=== PATIENT | female | born 1970 | race Asian ===

== ENCOUNTER 2019-05-12 08:47 | Outpatient (CLI) | payer OTHER ==
[2019-05-12 09:13] LABS: PLATELET COUNT 346 K/uL (152-353)
[2019-05-12 09:17] LABS: POTASSIUM 3.7 mmol/L (3.6-5.2)
[2019-05-12 12:45] LABS: PARTIAL THROMBOPLASTIN TIME 26.2 SECONDS (24.5-33.6)
== END 2019-05-12 22:36 | disposition home or self-care (01) ==
LOC: LABW 08:47
PROVIDERS: Podiatrist Foot & Ankle Surgery
DX: Z01.812 Encounter for preprocedural laboratory examination (principal); E11.40 Type 2 diabetes mellitus with diabetic neuropathy, unspecified; M20.42 Other hammer toe(s) (acquired), left foot
CPT/HCPCS: 36415; 80048; 81000; 83036; 85027; 85610; 85730

== ENCOUNTER 2019-06-13 23:44 | Emergency (ER) | payer OTHER ==
[~2019-06-13] VITALS: Ht 167.6 cm; Wt 117.9 kg
[2019-06-14 00:02] VITALS: TEMP 98.3
[2019-06-14 01:58] VITALS: BP 148/85
== END 2019-06-14 01:59 | disposition home or self-care (01) ==
LOC: ED 23:44
PROC: 0HDRXZZ Extraction of Toe Nail, External Approach (ICD-10-PCS; principal; 2019-06-13)
DX: S91.201A Unspecified open wound of right great toe with damage to nail, initial encounter (principal); W22.8XXA Striking against or struck by other objects, initial encounter; Y92.89 Other specified places as the place of occurrence of the external cause
CPT/HCPCS: 90471; 90715; 99283; J7040

== ENCOUNTER 2019-06-27 10:10 | Outpatient (CLI) | payer OTHER | END 2019-06-27 21:55 | disposition home or self-care (01) | LOC: MRI 10:10 | DX: R51 Headache (principal); H53.8 Other visual disturbances | CPT/HCPCS: 36415; 82565; 84520; A9576 ==

== ENCOUNTER 2019-08-20 09:07 | Outpatient (CLI) | payer OTHER ==
[2019-08-20 09:34] LABS: POTASSIUM 4.1 mmol/L (3.6-5.2)
== END 2019-08-20 19:28 | disposition home or self-care (01) ==
LOC: RESP 09:07 → LABW 09:07
PROVIDERS: Internal Medicine Cardiovascular Disease
DX: Z79.899 Other long term (current) drug therapy (principal); I10 Essential (primary) hypertension
CPT/HCPCS: 36415; 80048; 94760

== ENCOUNTER 2019-09-10 09:15 | Outpatient (CLI) | payer OTHER | END 2019-09-10 19:25 | disposition home or self-care (01) | LOC: RESP 09:15 | DX: R06.02 Shortness of breath (principal) ==

== ENCOUNTER 2020-06-16 13:28 | Outpatient (CLI) | payer OTHER ==
[2020-06-16 13:53] LABS: PLATELET COUNT 328 K/uL (152-353)
[2020-06-16 14:03] LABS: POTASSIUM 4.4 mmol/L (3.6-5.2)
== END 2020-06-16 22:27 | disposition home or self-care (01) ==
LOC: LAB 13:28
PROVIDERS: Nurse Practitioner Family
DX: I10 Essential (primary) hypertension (principal); E78.5 Hyperlipidemia, unspecified; E11.9 Type 2 diabetes mellitus without complications; Z86.73 Personal history of transient ischemic attack (TIA), and cerebral infarction without residual deficits; R53.81 Other malaise; E55.9 Vitamin D deficiency, unspecified; R53.83 Other fatigue; K21.9 Gastro-esophageal reflux disease without esophagitis; Z79.899 Other long term (current) drug therapy
CPT/HCPCS: 36415; 80053; 80061; 82306; 83036; 84439; 84443; 84481; 85027

== ENCOUNTER 2020-08-02 09:58 | Emergency (ER) | payer OTHER ==
[~2020-08-02] VITALS: Ht 167.6 cm; Wt 117.9 kg
[2020-08-02 10:04] VITALS: TEMP 98.4
[2020-08-02 12:17] LABS: PLATELET COUNT 340 K/uL (152-353)
[2020-08-02 14:16] VITALS: BP 136/78
== END 2020-08-02 14:16 | disposition home or self-care (01) ==
LOC: ED 09:58
PROVIDERS: Emergency Medicine Emergency Medical Services
DX: R10.32 Left lower quadrant pain (principal)
CPT/HCPCS: 36415; 80053; 81000; 83690; 85027; 96360; 96375; 99284; J1885

== ENCOUNTER 2020-08-09 10:15 | Outpatient (CLI) | payer OTHER | END 2020-08-09 19:41 | disposition home or self-care (01) | LOC: RAD 10:15 | PROVIDERS: ATTEND Nurse Practitioner Family | DX: M25.551 Pain in right hip (principal) ==

== ENCOUNTER 2020-08-10 16:52 | Emergency (ER) | payer OTHER ==
[~2020-08-10] VITALS: Ht 167.6 cm; Wt 108.9 kg
[2020-08-10 19:45] VITALS: BP 174/98; TEMP 98.8
== END 2020-08-10 19:45 | disposition home or self-care (01) ==
LOC: ED 16:52
DX: I10 Essential (primary) hypertension (principal); M25.551 Pain in right hip
CPT/HCPCS: 99284

== ENCOUNTER 2020-09-08 15:26 | Outpatient (CLI) | payer OTHER | END 2020-09-08 21:48 | disposition home or self-care (01) | LOC: LAB 15:26 | PROVIDERS: ATTEND Nurse Practitioner Family | DX: N39.0 Urinary tract infection, site not specified (principal) | CPT/HCPCS: 81000 ==

== ENCOUNTER 2021-01-26 15:50 | Outpatient (CLI) | payer OTHER | END 2021-01-26 20:33 | disposition home or self-care (01) | LOC: RAD 15:50 | PROVIDERS: ATTEND Nurse Practitioner Family | DX: M25.551 Pain in right hip (principal) ==

== ENCOUNTER 2021-02-07 08:42 | Outpatient (CLI) | payer OTHER ==
[~2021-02-07] VITALS: Ht 167.6 cm; Wt 106.6 kg
== END 2021-02-07 21:45 | disposition home or self-care (01) ==
LOC: DIABINF 08:42
PROVIDERS: ATTEND Internal Medicine Endocrinology, Diabetes & Metabolism
DX: E11.65 Type 2 diabetes mellitus with hyperglycemia (principal); I10 Essential (primary) hypertension; E78.49 Other hyperlipidemia; Z86.73 Personal history of transient ischemic attack (TIA), and cerebral infarction without residual deficits; E55.9 Vitamin D deficiency, unspecified; K21.9 Gastro-esophageal reflux disease without esophagitis
CPT/HCPCS: 82948; 96365; 96366; 96521; J1815; J1817

== ENCOUNTER 2021-02-08 08:28 | Outpatient (CLI) | payer OTHER ==
[~2021-02-08] VITALS: Ht 167.6 cm; Wt 106.6 kg
== END 2021-02-08 22:40 | disposition home or self-care (01) ==
LOC: DIABINF 08:28
PROVIDERS: ATTEND Internal Medicine Endocrinology, Diabetes & Metabolism
DX: E11.65 Type 2 diabetes mellitus with hyperglycemia (principal); I10 Essential (primary) hypertension; E78.49 Other hyperlipidemia; Z86.73 Personal history of transient ischemic attack (TIA), and cerebral infarction without residual deficits; E55.9 Vitamin D deficiency, unspecified; K21.9 Gastro-esophageal reflux disease without esophagitis
CPT/HCPCS: 82948; 96365; 96366; 96521; J1815; J1817

== ENCOUNTER 2021-02-14 08:03 | Outpatient (CLI) | payer OTHER | END 2021-02-14 19:48 | disposition home or self-care (01) | LOC: RAD 08:03 | PROVIDERS: ATTEND Nurse Practitioner Family | DX: M79.644 Pain in right finger(s) (principal) ==

== ENCOUNTER 2021-02-14 08:08 | Outpatient (CLI) | payer OTHER ==
[~2021-02-14] VITALS: Ht 167.6 cm; Wt 106.6 kg
== END 2021-02-14 19:53 | disposition home or self-care (01) ==
LOC: DIABINF 08:08
PROVIDERS: ATTEND Internal Medicine Endocrinology, Diabetes & Metabolism
DX: E11.65 Type 2 diabetes mellitus with hyperglycemia (principal); E11.40 Type 2 diabetes mellitus with diabetic neuropathy, unspecified; E11.43 Type 2 diabetes mellitus with diabetic autonomic (poly)neuropathy; K31.84 Gastroparesis; Z86.73 Personal history of transient ischemic attack (TIA), and cerebral infarction without residual deficits; I10 Essential (primary) hypertension; E78.2 Mixed hyperlipidemia; J45.998 Other asthma; E55.9 Vitamin D deficiency, unspecified; K21.9 Gastro-esophageal reflux disease without esophagitis
CPT/HCPCS: 82948; 96365; 96366; 96521; J1815; J1817

== ENCOUNTER 2021-02-15 08:34 | Outpatient (CLI) | payer OTHER ==
[~2021-02-15] VITALS: Ht 167.6 cm; Wt 106.6 kg
== END 2021-02-15 19:19 | disposition home or self-care (01) ==
LOC: DIABINF 08:34
PROVIDERS: ATTEND Internal Medicine Endocrinology, Diabetes & Metabolism
DX: E11.65 Type 2 diabetes mellitus with hyperglycemia (principal); E11.40 Type 2 diabetes mellitus with diabetic neuropathy, unspecified; E11.43 Type 2 diabetes mellitus with diabetic autonomic (poly)neuropathy; K31.84 Gastroparesis; Z86.73 Personal history of transient ischemic attack (TIA), and cerebral infarction without residual deficits; I10 Essential (primary) hypertension; E78.2 Mixed hyperlipidemia; J45.998 Other asthma; E55.9 Vitamin D deficiency, unspecified; K21.9 Gastro-esophageal reflux disease without esophagitis
CPT/HCPCS: 82948; 96365; 96366; 96521; J1815; J1817

== ENCOUNTER 2021-02-21 08:15 | Outpatient (CLI) | payer OTHER ==
[~2021-02-21] VITALS: Ht 167.6 cm; Wt 105.2 kg
== END 2021-02-21 11:30 | disposition home or self-care (01) ==
LOC: DIABINF 08:15
PROVIDERS: ATTEND Internal Medicine Endocrinology, Diabetes & Metabolism
DX: E11.65 Type 2 diabetes mellitus with hyperglycemia (principal); E11.40 Type 2 diabetes mellitus with diabetic neuropathy, unspecified; E11.43 Type 2 diabetes mellitus with diabetic autonomic (poly)neuropathy; K31.84 Gastroparesis; Z86.73 Personal history of transient ischemic attack (TIA), and cerebral infarction without residual deficits; I10 Essential (primary) hypertension; E78.2 Mixed hyperlipidemia; J45.998 Other asthma; E55.9 Vitamin D deficiency, unspecified; K21.9 Gastro-esophageal reflux disease without esophagitis
CPT/HCPCS: 82948; 96365; 96366; 96521; J1815; J1817

== ENCOUNTER 2021-02-21 11:58 | Outpatient (CLI) | payer OTHER | END 2021-02-21 15:00 | disposition home or self-care (01) | LOC: RAD 11:58 | PROVIDERS: ATTEND Nurse Practitioner Family | DX: M25.571 Pain in right ankle and joints of right foot (principal); W10.8XXA Fall (on) (from) other stairs and steps, initial encounter; Z86.73 Personal history of transient ischemic attack (TIA), and cerebral infarction without residual deficits; M79.671 Pain in right foot; M25.561 Pain in right knee ==

== ENCOUNTER 2021-02-22 08:09 | Outpatient (CLI) | payer OTHER ==
[~2021-02-22] VITALS: Ht 167.6 cm; Wt 105.2 kg
== END 2021-02-22 11:30 | disposition home or self-care (01) ==
LOC: DIABINF 08:09
PROVIDERS: ATTEND Internal Medicine Endocrinology, Diabetes & Metabolism
DX: E11.65 Type 2 diabetes mellitus with hyperglycemia (principal); E11.40 Type 2 diabetes mellitus with diabetic neuropathy, unspecified; E11.43 Type 2 diabetes mellitus with diabetic autonomic (poly)neuropathy; K31.84 Gastroparesis; Z86.73 Personal history of transient ischemic attack (TIA), and cerebral infarction without residual deficits; I10 Essential (primary) hypertension; E78.2 Mixed hyperlipidemia; J45.998 Other asthma; E55.9 Vitamin D deficiency, unspecified; K21.9 Gastro-esophageal reflux disease without esophagitis
CPT/HCPCS: 82948; 96365; 96366; 96521; J1815; J1817

== ENCOUNTER 2021-02-28 07:35 | Outpatient (CLI) | payer OTHER ==
[~2021-02-28] VITALS: Ht 167.6 cm; Wt 105.2 kg
== END 2021-02-28 11:30 | disposition home or self-care (01) ==
LOC: DIABINF 07:35
PROVIDERS: ATTEND Nurse Practitioner
DX: E11.65 Type 2 diabetes mellitus with hyperglycemia (principal); E11.43 Type 2 diabetes mellitus with diabetic autonomic (poly)neuropathy; K31.84 Gastroparesis; Z86.73 Personal history of transient ischemic attack (TIA), and cerebral infarction without residual deficits; I10 Essential (primary) hypertension; E78.2 Mixed hyperlipidemia; J45.998 Other asthma; E55.9 Vitamin D deficiency, unspecified; K21.9 Gastro-esophageal reflux disease without esophagitis; E11.40 Type 2 diabetes mellitus with diabetic neuropathy, unspecified
CPT/HCPCS: 82948; 96365; 96366; 96521; J1815; J1817

== ENCOUNTER 2021-03-01 08:18 | Outpatient (CLI) | payer OTHER ==
[~2021-03-01] VITALS: Ht 167.6 cm; Wt 105.2 kg
== END 2021-03-01 11:30 | disposition home or self-care (01) ==
LOC: DIABINF 08:18
PROVIDERS: ATTEND Nurse Practitioner
DX: E11.65 Type 2 diabetes mellitus with hyperglycemia (principal); E11.40 Type 2 diabetes mellitus with diabetic neuropathy, unspecified; E11.43 Type 2 diabetes mellitus with diabetic autonomic (poly)neuropathy; K31.84 Gastroparesis; Z86.73 Personal history of transient ischemic attack (TIA), and cerebral infarction without residual deficits; I10 Essential (primary) hypertension; E78.2 Mixed hyperlipidemia; J45.998 Other asthma; E55.9 Vitamin D deficiency, unspecified; K21.9 Gastro-esophageal reflux disease without esophagitis
CPT/HCPCS: 82948; 96365; 96366; 96521; J1815; J1817

== ENCOUNTER 2021-03-08 07:48 | Outpatient (CLI) | payer OTHER ==
[~2021-03-08] VITALS: Ht 167.6 cm; Wt 105.2 kg
== END 2021-03-08 19:07 | disposition home or self-care (01) ==
LOC: DIABINF 07:48
PROVIDERS: ATTEND Nurse Practitioner
DX: E11.65 Type 2 diabetes mellitus with hyperglycemia (principal); E11.40 Type 2 diabetes mellitus with diabetic neuropathy, unspecified; E11.43 Type 2 diabetes mellitus with diabetic autonomic (poly)neuropathy; K31.84 Gastroparesis; Z86.73 Personal history of transient ischemic attack (TIA), and cerebral infarction without residual deficits; I10 Essential (primary) hypertension; E78.2 Mixed hyperlipidemia; J45.998 Other asthma; E55.9 Vitamin D deficiency, unspecified; K21.9 Gastro-esophageal reflux disease without esophagitis
CPT/HCPCS: 82948; 96365; 96366; 96521; J1815; J1817

== ENCOUNTER 2021-03-09 07:55 | Outpatient (CLI) | payer OTHER ==
[~2021-03-09] VITALS: Ht 167.6 cm; Wt 105.2 kg
== END 2021-03-09 22:08 | disposition home or self-care (01) ==
LOC: DIABINF 07:55
PROVIDERS: ATTEND Nurse Practitioner
DX: E11.65 Type 2 diabetes mellitus with hyperglycemia (principal); E11.40 Type 2 diabetes mellitus with diabetic neuropathy, unspecified; E11.43 Type 2 diabetes mellitus with diabetic autonomic (poly)neuropathy; K31.84 Gastroparesis; Z86.73 Personal history of transient ischemic attack (TIA), and cerebral infarction without residual deficits; I10 Essential (primary) hypertension; E78.2 Mixed hyperlipidemia; J45.998 Other asthma; E55.9 Vitamin D deficiency, unspecified; K21.9 Gastro-esophageal reflux disease without esophagitis
CPT/HCPCS: 82948; 96365; 96366; 96521; J1815; J1817

== ENCOUNTER 2021-03-15 08:12 | Outpatient (CLI) | payer OTHER ==
[~2021-03-15] VITALS: Ht 167.6 cm; Wt 106.6 kg
== END 2021-03-15 21:48 | disposition home or self-care (01) ==
LOC: DIABINF 08:12
PROVIDERS: ATTEND Nurse Practitioner
DX: E11.65 Type 2 diabetes mellitus with hyperglycemia (principal); E11.40 Type 2 diabetes mellitus with diabetic neuropathy, unspecified; E11.43 Type 2 diabetes mellitus with diabetic autonomic (poly)neuropathy; Z86.73 Personal history of transient ischemic attack (TIA), and cerebral infarction without residual deficits; I10 Essential (primary) hypertension; E78.2 Mixed hyperlipidemia; E55.9 Vitamin D deficiency, unspecified; K21.9 Gastro-esophageal reflux disease without esophagitis; M41.80 Other forms of scoliosis, site unspecified; G89.29 Other chronic pain
CPT/HCPCS: 82948; 96365; 96366; 96521; J1815; J1817

== ENCOUNTER 2021-03-22 08:19 | Outpatient (CLI) | payer OTHER ==
[~2021-03-22] VITALS: Ht 167.6 cm; Wt 106.6 kg
== END 2021-03-22 21:33 | disposition home or self-care (01) ==
LOC: DIABINF 08:19
PROVIDERS: ATTEND Nurse Practitioner
DX: E11.65 Type 2 diabetes mellitus with hyperglycemia (principal); E11.40 Type 2 diabetes mellitus with diabetic neuropathy, unspecified; E11.43 Type 2 diabetes mellitus with diabetic autonomic (poly)neuropathy; Z86.73 Personal history of transient ischemic attack (TIA), and cerebral infarction without residual deficits; I10 Essential (primary) hypertension; E78.2 Mixed hyperlipidemia; E55.9 Vitamin D deficiency, unspecified; K21.9 Gastro-esophageal reflux disease without esophagitis; M41.80 Other forms of scoliosis, site unspecified; G89.29 Other chronic pain
CPT/HCPCS: 82948; 96365; 96366; 96521; J1815; J1817

== ENCOUNTER 2021-03-29 07:45 | Outpatient (CLI) | payer OTHER ==
[~2021-03-29] VITALS: Ht 167.6 cm; Wt 106.6 kg
== END 2021-03-29 20:31 | disposition home or self-care (01) ==
LOC: DIABINF 07:45
PROVIDERS: ATTEND Nurse Practitioner
DX: E11.65 Type 2 diabetes mellitus with hyperglycemia (principal); E11.42 Type 2 diabetes mellitus with diabetic polyneuropathy; E78.2 Mixed hyperlipidemia; I10 Essential (primary) hypertension; Z86.73 Personal history of transient ischemic attack (TIA), and cerebral infarction without residual deficits; E55.9 Vitamin D deficiency, unspecified; K21.9 Gastro-esophageal reflux disease without esophagitis; G89.29 Other chronic pain; M41.9 Scoliosis, unspecified
CPT/HCPCS: 82948; 96365; 96366; 96521; J1815; J1817

== ENCOUNTER 2021-04-08 07:37 | Outpatient (CLI) | payer OTHER ==
[~2021-04-08] VITALS: Ht 167.6 cm; Wt 106.6 kg
== END 2021-04-08 19:55 | disposition home or self-care (01) ==
LOC: DIABINF 07:37
PROVIDERS: ATTEND Nurse Practitioner
DX: E11.65 Type 2 diabetes mellitus with hyperglycemia (principal); E11.43 Type 2 diabetes mellitus with diabetic autonomic (poly)neuropathy; K31.84 Gastroparesis; Z86.73 Personal history of transient ischemic attack (TIA), and cerebral infarction without residual deficits; I10 Essential (primary) hypertension; E78.2 Mixed hyperlipidemia; J45.909 Unspecified asthma, uncomplicated; E55.9 Vitamin D deficiency, unspecified; K21.9 Gastro-esophageal reflux disease without esophagitis; E11.40 Type 2 diabetes mellitus with diabetic neuropathy, unspecified
CPT/HCPCS: 82948; 96365; 96366; 96521; J1815; J1817

== ENCOUNTER 2021-04-12 07:36 | Outpatient (CLI) | payer OTHER ==
[~2021-04-12] VITALS: Ht 167.6 cm; Wt 106.6 kg
== END 2021-04-12 19:17 | disposition home or self-care (01) ==
LOC: DIABINF 07:36
PROVIDERS: ATTEND Nurse Practitioner
DX: E11.65 Type 2 diabetes mellitus with hyperglycemia (principal); E11.42 Type 2 diabetes mellitus with diabetic polyneuropathy; E78.2 Mixed hyperlipidemia; I10 Essential (primary) hypertension; Z86.73 Personal history of transient ischemic attack (TIA), and cerebral infarction without residual deficits; E55.9 Vitamin D deficiency, unspecified; K21.9 Gastro-esophageal reflux disease without esophagitis; G89.29 Other chronic pain; M41.80 Other forms of scoliosis, site unspecified
CPT/HCPCS: 82948; 96365; 96366; 96521; J1815; J1817

== ENCOUNTER 2021-04-19 07:45 | Outpatient (CLI) | payer OTHER ==
[~2021-04-19] VITALS: Ht 167.6 cm; Wt 106.6 kg
== END 2021-04-19 20:10 | disposition home or self-care (01) ==
LOC: DIABINF 07:45
PROVIDERS: ATTEND Nurse Practitioner
DX: E11.65 Type 2 diabetes mellitus with hyperglycemia (principal); E11.42 Type 2 diabetes mellitus with diabetic polyneuropathy; E78.2 Mixed hyperlipidemia; I10 Essential (primary) hypertension; Z86.73 Personal history of transient ischemic attack (TIA), and cerebral infarction without residual deficits; E55.9 Vitamin D deficiency, unspecified; K21.9 Gastro-esophageal reflux disease without esophagitis; G89.29 Other chronic pain; M41.9 Scoliosis, unspecified
CPT/HCPCS: 82948; 96365; 96366; 96521; J1815; J1817

== ENCOUNTER 2021-04-19 08:46 | Outpatient (CLI) | payer OTHER ==
[2021-04-19 09:09] LABS: PLATELET COUNT 336 K/uL (152-353)
[2021-04-19 09:24] LABS: POTASSIUM 3.6 mmol/L (3.6-5.2)
[2021-04-20 08:44] LABS: LDL CHOLESTEROL 83.6 mg/dL (0-99*)
== END 2021-04-19 21:19 | disposition home or self-care (01) ==
LOC: LAB 08:46
PROVIDERS: ATTEND Nurse Practitioner Family
DX: I10 Essential (primary) hypertension (principal); E11.65 Type 2 diabetes mellitus with hyperglycemia; E78.5 Hyperlipidemia, unspecified; Z86.73 Personal history of transient ischemic attack (TIA), and cerebral infarction without residual deficits; E55.9 Vitamin D deficiency, unspecified
CPT/HCPCS: 36415; 80053; 80061; 82306; 83036; 85027

== ENCOUNTER 2021-04-26 07:57 | Outpatient (CLI) | payer OTHER ==
[~2021-04-26] VITALS: Ht 167.6 cm; Wt 106.6 kg
== END 2021-04-26 21:41 | disposition home or self-care (01) ==
LOC: DIABINF 07:57
PROVIDERS: ATTEND Nurse Practitioner
DX: E11.65 Type 2 diabetes mellitus with hyperglycemia (principal); E11.43 Type 2 diabetes mellitus with diabetic autonomic (poly)neuropathy; K31.84 Gastroparesis; Z86.73 Personal history of transient ischemic attack (TIA), and cerebral infarction without residual deficits; I10 Essential (primary) hypertension; E78.2 Mixed hyperlipidemia; J45.998 Other asthma; E55.9 Vitamin D deficiency, unspecified; K21.9 Gastro-esophageal reflux disease without esophagitis; E11.40 Type 2 diabetes mellitus with diabetic neuropathy, unspecified
CPT/HCPCS: 82948; 96365; 96366; 96521; J1815; J1817

== ENCOUNTER 2021-05-04 22:03 | Emergency (ER) | payer OTHER ==
[~2021-05-04] VITALS: Ht 167.6 cm; Wt 108.9 kg
[2021-05-04 22:05] VITALS: BP 119/67; TEMP 101
[2021-05-04 22:34] LABS: PLATELET COUNT 195 K/uL (152-353)
[2021-05-04 22:44] LABS: POTASSIUM 3.5 mmol/L (3.6-5.2)
[2021-05-06] MEDS ORDERED: CLOP75TA2 PO (20:38)
[2021-05-06] MEDS ORDERED: BASAGLAR K100 UNIT/M SC (20:39)
[2021-05-06] MEDS ORDERED: DICLOFENAC0.1 % TOP (20:40)
[2021-05-06] MEDS ORDERED: LIPITOR20 MG PO (20:41)
[2021-05-06] MEDS ORDERED: TOPIRAMATE50 MG PO (20:42)
[2021-05-06] MEDS ORDERED: CLON0.1T16 PO (20:43)
[2021-05-06] MEDS ORDERED: AVAPRO300 MG PO (20:44)
[2021-05-06] MEDS ORDERED: GLIM4TAB PO (20:45)
[2021-05-06] MEDS ORDERED: AMLODIPINE BESYLATE PO (20:46)
[2021-05-06] MEDS ORDERED: SPIRONOLACT25 MG PO (20:47)
[2021-05-06] MEDS ORDERED: MONTELUKAST SOD10 MG PO (20:48)
== END 2021-05-05 00:08 | disposition home or self-care (01) ==
LOC: ED 22:03
PROVIDERS: Family Medicine
DX: J12.9 Viral pneumonia, unspecified (principal); U07.1 COVID-19
CPT/HCPCS: 36415; 36591; 80053; 85027; 87635; 96374; 99284; J2930; U0003

== ENCOUNTER 2021-05-06 11:59 | Inpatient (IN) | payer OTHER ==
[2021-05-06] VITALS (15 sets, daily range): BP systolic 123–1310; BP diastolic 54–92; TEMP 98.2–100.9; Ht 167.6 cm; Wt 114.0 kg
[~2021-05-06] VITALS: Ht 167.6 cm; Wt 114.0 kg
[2021-05-06 13:22] LABS: POTASSIUM 3.8 mmol/L (3.6-5.2)
[2021-05-06 13:25] LABS: PLATELET COUNT 254 K/uL (152-353)
[2021-05-06] MEDS ORDERED: CLOP75TA2 PO (20:38)
[2021-05-06] MEDS ORDERED: BASAGLAR K100 UNIT/M SC (20:39)
[2021-05-06] MEDS ORDERED: DICLOFENAC0.1 % TOP (20:40)
[2021-05-06] MEDS ORDERED: LIPITOR20 MG PO (20:41)
[2021-05-06] MEDS ORDERED: TOPIRAMATE50 MG PO (20:42)
[2021-05-06] MEDS ORDERED: CLON0.1T16 PO (20:43)
[2021-05-06] MEDS ORDERED: AVAPRO300 MG PO (20:44)
[2021-05-06] MEDS ORDERED: GLIM4TAB PO (20:45)
[2021-05-06] MEDS ORDERED: AMLODIPINE BESYLATE PO (20:46)
[2021-05-06] MEDS ORDERED: SPIRONOLACT25 MG PO (20:47)
[2021-05-06] MEDS ORDERED: MONTELUKAST SOD10 MG PO (20:48)
[2021-05-07 04:00] VITALS: BP 116/54; TEMP 98.6
[2021-05-07 04:46] LABS: PLATELET COUNT 222 K/uL (152-353)
[2021-05-07 04:50] LABS: POTASSIUM 4.3 mmol/L (3.6-5.2)
[2021-05-07 08:00] VITALS: BP 132/59; TEMP 98.4
[2021-05-07 12:00] VITALS: BP 125/88; TEMP 97.9
[2021-05-07 16:00] VITALS: BP 113/45; TEMP 97.9
[2021-05-07 20:00] VITALS: BP 128/69; TEMP 98.2
[2021-05-08] VITALS: BP 144/64; TEMP 98.1
[2021-05-08 04:00] VITALS: BP 128/64; TEMP 97.5
[2021-05-08 05:45] LABS: PLATELET COUNT 302 K/uL (152-353)
[2021-05-08 06:12] LABS: POTASSIUM 3.9 mmol/L (3.6-5.2)
[2021-05-08 08:00] VITALS: BP 146/76; TEMP 97.9
[2021-05-08 12:00] VITALS: BP 136/78; TEMP 98.1
[2021-05-08 16:00] VITALS: BP 112/74; TEMP 98.1
[2021-05-08 20:00] VITALS: BP 139/73; TEMP 98.6
[2021-05-09] VITALS: BP 138/59; TEMP 98
[2021-05-09 04:00] VITALS: BP 144/68; TEMP 97.5
[2021-05-09 06:25] LABS: PLATELET COUNT 359 K/uL (152-353)
[2021-05-09 06:45] LABS: POTASSIUM 3.9 mmol/L (3.6-5.2)
[2021-05-09 08:00] VITALS: BP 139/53; TEMP 98.1
[2021-05-09 12:00] VITALS: BP 107/70; TEMP 98.2
[2021-05-09 16:00] VITALS: BP 140/64; TEMP 97.9
[2021-05-09 20:00] VITALS: BP 138/58; TEMP 98.4
[2021-05-10 00:21] VITALS: BP 150/63; TEMP 98.3
[2021-05-10 04:29] VITALS: BP 173/79; TEMP 98.2
[2021-05-10 05:42] LABS: PLATELET COUNT 400 K/uL (152-353)
[2021-05-10 05:58] LABS: POTASSIUM 3.3 mmol/L (3.6-5.2)
[2021-05-10 08:00] VITALS: BP 126/69; TEMP 98.3
[2021-05-10 12:00] VITALS: BP 129/57; TEMP 98.2
[2021-05-10 16:00] VITALS: BP 171/84; TEMP 98.3
[2021-05-10 20:00] VITALS: BP 126/59; TEMP 98.7
[2021-05-11] VITALS: BP 146/52; TEMP 97.8
[2021-05-11 04:00] VITALS: BP 142/73; TEMP 98.4
[2021-05-11 05:11] LABS: PLATELET COUNT 407 K/uL (152-353)
[2021-05-11 05:28] LABS: POTASSIUM 3.6 mmol/L (3.6-5.2)
[2021-05-11 08:00] VITALS: BP 161/61; TEMP 98.1
[2021-05-11 12:00] VITALS: BP 121/63; TEMP 98.7
[2021-05-11 16:00] VITALS: BP 147/79; TEMP 98.7
[2021-05-11 20:00] VITALS: BP 112/58; TEMP 98.8
[2021-05-12] VITALS: BP 146/62; TEMP 98.3
[2021-05-12 04:00] VITALS: BP 108/63; TEMP 98.1
[2021-05-12 08:00] VITALS: BP 152/75; TEMP 98.5
[2021-05-12 12:00] VITALS: BP 138/74; TEMP 98.3
[2021-05-12 16:00] VITALS: BP 157/82; TEMP 97.5
[2021-05-12 20:00] VITALS: BP 147/72; TEMP 98
[2021-05-13] VITALS (7 sets, daily range): BP systolic 110–173; BP diastolic 55–89; TEMP 97.7–98.8
[2021-05-13 04:44] LABS: PLATELET COUNT 396 K/uL (152-353)
[2021-05-13 05:03] LABS: POTASSIUM 3.8 mmol/L (3.6-5.2)
[2021-05-14 04:00] VITALS: BP 139/65; TEMP 98.3
[2021-05-14 08:00] VITALS: BP 159/83; TEMP 98.9
[2021-05-14 12:00] VITALS: BP 109/64; TEMP 99.1
[2021-05-14 12:43] LABS: PLATELET COUNT 428 K/uL (152-353)
[2021-05-14 12:55] LABS: POTASSIUM 3.2 mmol/L (3.6-5.2)
[2021-05-14 16:00] VITALS: BP 98/52; TEMP 98.8
[2021-05-14 20:00] VITALS: BP 136/66; TEMP 98.6
[2021-05-15] VITALS: BP 151/85; TEMP 98.3
[2021-05-15 04:28] VITALS: BP 168/85; TEMP 98.6
[2021-05-15 04:58] LABS: PLATELET COUNT 410 K/uL (152-353)
[2021-05-15 05:13] LABS: POTASSIUM 3.7 mmol/L (3.6-5.2)
[2021-05-15 08:00] VITALS: BP 136/64; TEMP 98.5
[2021-05-15 12:00] VITALS: BP 135/68; TEMP 98
[2021-05-15 16:00] VITALS: BP 105/57; TEMP 98.3
[2021-05-15 20:00] VITALS: BP 166/70; TEMP 98.2
[2021-05-16 00:02] VITALS: BP 131/68; TEMP 99
[2021-05-16 04:00] VITALS: BP 90/63; TEMP 97.5
[2021-05-16 07:51] LABS: PLATELET COUNT 449 K/uL (152-353)
[2021-05-16 08:00] VITALS: BP 131/51; TEMP 97.9
[2021-05-16 12:00] VITALS: BP 128/56; TEMP 98.6
[2021-05-16 16:00] VITALS: BP 156/79; TEMP 98.3
[2021-05-16 20:00] VITALS: BP 106/52; TEMP 98.2
[2021-05-17] VITALS (7 sets, daily range): BP systolic 112–164; BP diastolic 59–100; TEMP 97.6–98.9
[2021-05-17 05:49] LABS: PLATELET COUNT 349 K/uL (152-353)
[2021-05-17 06:17] LABS: POTASSIUM 3.9 mmol/L (3.6-5.2)
[2021-05-18 03:46] VITALS: BP 147/73; TEMP 98.8
[2021-05-18 05:05] LABS: PLATELET COUNT 284 K/uL (152-353)
[2021-05-18 08:00] VITALS: BP 185/80; TEMP 97.4
[2021-05-18 12:00] VITALS: BP 126/62; TEMP 97.4
[2021-05-18 16:00] VITALS: BP 133/77; TEMP 97.6
[2021-05-18 20:29] VITALS: BP 147/58; TEMP 97.6
[2021-05-19 00:06] VITALS: BP 124/70; TEMP 97
[2021-05-19 04:08] VITALS: BP 131/60; TEMP 98.5
[2021-05-19 05:22] LABS: PLATELET COUNT 242 K/uL (152-353)
[2021-05-19 08:00] VITALS: BP 159/69; TEMP 98.5
[2021-05-19 12:00] VITALS: BP 106/53; TEMP 100.1
[2021-05-19 16:00] VITALS: BP 106/52; TEMP 99.1
[2021-05-19 19:57] VITALS: BP 115/52; TEMP 97.9
[2021-05-20 00:12] VITALS: BP 142/54; TEMP 98.9
[2021-05-20 04:07] VITALS: BP 113/62; TEMP 98.2
[2021-05-20 05:14] LABS: PLATELET COUNT 230 K/uL (152-353)
[2021-05-20 05:30] LABS: POTASSIUM 4.1 mmol/L (3.6-5.2)
[2021-05-20 08:00] VITALS: BP 143/42; TEMP 97.6
[2021-05-20 12:00] VITALS: BP 131/76; TEMP 98.1
[2021-05-20 16:00] VITALS: BP 134/83; TEMP 98.1
[2021-05-20 20:00] VITALS: BP 94/55; TEMP 97.8
[2021-05-21 00:09] VITALS: BP 120/57; TEMP 97.7
[2021-05-21 04:00] VITALS: BP 118/70; TEMP 97.9
[2021-05-21 05:14] LABS: PLATELET COUNT 235 K/uL (152-353)
[2021-05-21 05:37] LABS: POTASSIUM 4.1 mmol/L (3.6-5.2)
[2021-05-21 08:00] VITALS: BP 137/81; TEMP 97.9
[2021-05-21 12:00] VITALS: BP 126/72; TEMP 97.8
[2021-05-21 16:00] VITALS: BP 121/70; TEMP 98.1
[2021-05-21 20:18] VITALS: BP 131/71; TEMP 97.7
[2021-05-22 00:11] VITALS: BP 115/61; TEMP 98.5
[2021-05-22 04:00] VITALS: BP 97/58; TEMP 97.9
[2021-05-22 07:58] LABS: PLATELET COUNT 212 K/uL (152-353)
[2021-05-22 08:00] VITALS: BP 144/67; TEMP 97.6
[2021-05-22 08:08] LABS: POTASSIUM 4.6 mmol/L (3.6-5.2)
[2021-05-22 20:00] VITALS: TEMP 99
[2021-05-23] VITALS: TEMP 99.5
[2021-05-23 04:00] VITALS: TEMP 98.2
[2021-05-23 04:24] LABS: PLATELET COUNT 185 K/uL (152-353)
[2021-05-23 04:45] LABS: POTASSIUM 4.7 mmol/L (3.6-5.2)
[2021-05-23 08:00] VITALS: TEMP 98.2
[2021-05-23 12:00] VITALS: TEMP 98.9
[2021-05-23 16:00] VITALS: TEMP 99.1
[2021-05-23 20:00] VITALS: TEMP 98.2
[2021-05-24] VITALS: TEMP 97.5
[2021-05-24 04:00] VITALS: TEMP 98.6
[2021-05-24 04:11] LABS: PLATELET COUNT 195 K/uL (152-353)
[2021-05-24 04:17] LABS: POTASSIUM 3.9 mmol/L (3.6-5.2)
[2021-05-24 20:00] VITALS: TEMP 99.1
[2021-05-25] VITALS: TEMP 98.8
[2021-05-25 04:00] VITALS: TEMP 98.7
[2021-05-25 05:03] LABS: PLATELET COUNT 212 K/uL (152-353)
[2021-05-25 05:22] LABS: POTASSIUM 4.8 mmol/L (3.6-5.2)
[2021-05-25 08:00] VITALS: TEMP 98.2
[2021-05-25 12:00] VITALS: TEMP 97.7
[2021-05-25 15:00] VITALS: TEMP 96.9
[2021-05-25 20:00] VITALS: TEMP 96.9
[2021-05-26 00:01] VITALS: TEMP 97.3
[2021-05-26 04:00] VITALS: TEMP 97.6
[2021-05-26 05:23] LABS: PLATELET COUNT 266 K/uL (152-353)
[2021-05-26 05:43] LABS: POTASSIUM 4.8 mmol/L (3.6-5.2)
[2021-05-26 12:00] VITALS: TEMP 97.1
[2021-05-26 16:00] VITALS: TEMP 98.5
[2021-05-26 18:00] VITALS: BP 132/72
[2021-05-26 20:00] VITALS: TEMP 97.4
[2021-05-27] VITALS: TEMP 96.9
[2021-05-27 04:00] VITALS: TEMP 96.6
[2021-05-27 05:18] LABS: POTASSIUM 5.9 mmol/L (3.6-5.2)
[2021-05-27 05:24] LABS: PLATELET COUNT 335 K/uL (152-353)
[2021-05-27 08:00] VITALS: TEMP 96.7
[2021-05-27 12:00] VITALS: TEMP 96.5
[2021-05-27 13:55] LABS: PLATELET COUNT 317 K/uL (152-353)
[2021-05-27 14:08] LABS: POTASSIUM 5.3 mmol/L (3.6-5.2)
[2021-05-27 16:00] VITALS: TEMP 96.3
== END 2021-05-27 23:52 | disposition expired | DRG 207 ==
LOC: ED 12:03 → MED/SURG 14:31 → ICU 05-22 10:50
PROVIDERS: Emergency Medicine Emergency Medical Services; Internal Medicine; Internal Medicine Endocrinology, Diabetes & Metabolism; ADMIT Internal Medicine; ATTEND Internal Medicine
PROC: 05H633Z Insertion of Infusion Device into Left Subclavian Vein, Percutaneous Approach (ICD-10-PCS; 2021-05-16)
PROC: B547ZZA Ultrasonography of Left Subclavian Vein, Guidance (ICD-10-PCS; 2021-05-16)
PROC: 5A1955Z Respiratory Ventilation, Greater than 96 Consecutive Hours (ICD-10-PCS; principal; 2021-05-22)
PROC: 0BH17EZ Insertion of Endotracheal Airway into Trachea, Via Natural or Artificial Opening (ICD-10-PCS; 2021-05-22)
PROC: 05HM33Z Insertion of Infusion Device into Right Internal Jugular Vein, Percutaneous Approach (ICD-10-PCS; 2021-05-23)
PROC: B543ZZA Ultrasonography of Right Jugular Veins, Guidance (ICD-10-PCS; 2021-05-23)
DX: U07.1 COVID-19 (principal); J96.01 Acute respiratory failure with hypoxia; J12.82 Pneumonia due to coronavirus disease 2019; Z86.73 Personal history of transient ischemic attack (TIA), and cerebral infarction without residual deficits; E78.49 Other hyperlipidemia; K21.9 Gastro-esophageal reflux disease without esophagitis; E13.65 Other specified diabetes mellitus with hyperglycemia; E66.8 Other obesity; Z68.38 Body mass index [BMI] 38.0-38.9, adult; I87.8 Other specified disorders of veins
CPT/HCPCS: 36415; 36569; 36591; 36600; 80053; 80061; 80202; 81000; 82550; 82728; 82805; 83735; 84100; 84484; 85007; 85014; 85018; 85027; 85379; 86140; 87040; 87070; 87635; 92950; 93005; 94002; 94003; 94640; 94664; 94760; 96360; 96375; 99284; C1751; C1768; G0283-GP; J0456; J0692; J1100; J1642; J1650; J1815; J1885; J1940; J1956; J2175; J2250; J2405; J3010; J3370; J3490; P9047; Q9963; U0003